=== PATIENT | female | born 1950 | race Caucasian/White ===

== ENCOUNTER 2022-05-02 11:56 | Day surgery (SDC) | payer MEDICARE, SELFPAY ==
[2022-05-02] MEDS: Tropicam./Phenyleph. (1/2.5%) 5 ML BTL OD ×3 (12:25→12:36)
[2022-05-02 12:26] VITALS: BP 147/86; PULSE 69; RESP 16; TEMP 36.4; O2SAT 100
--- NOTE | 2022-05-02 12:33 | ANES.PREOP_ITS ---
General Info Date of Service Date Performed: 05/02/22 Height: 5 ft 5.5 in Weight: 77.2 kg Body Mass Index (BMI): 27.8 Surgical Procedure: Operation Date: 05/02/22 15:40 Proposed Procedure Side Surgeon p Cataract Extraction with IOL Implant Right Devin Hernandez MD Meds Allergies and Home Medications Allergies Allergy/AdvReac Type Severity Reaction Status Date / Time green pepper Allergy Severe Anaphylaxis Verified 05/02/22 12:08 Sulfa (Sulfonamide Allergy Intermediate SKIN RASH Unverified 05/02/22 12:08 Antibiotics) mold Allergy Verified 05/02/22 12:08 niacin AdvReac Intermediate HEART Unverified 05/02/22 12:08 RACING; SKIN FLUSH Home Medication Medication Instructions Recorded Motrin 1 - 2 tab PO TID PRN 10/26/12 ascorbic acid (vitamin C) 1,000 mg 1 tab PO PRN 10/26/12 tablet lactase 9,000 unit chewable tablet 1 tab PO DAILY PRN 10/26/12 (Lactaid Fast Act) fexofenadine 180 mg tablet 180 mg PO DAILY #30 tab-caps 04/09/15 multivitamin (Daily Value tablet) 1 ea PO DAILY 07/21/15 Saccharomyces boulardii 250 mg 250 mg PO DAILY 04/29/22 capsule (Florastor) allopurinol 100 mg tablet 1 tab PO DAILY 04/29/22 atorvastatin 40 mg tablet 1 tab PO DAILY 04/29/22 biotin 1,000 mcg chewable tablet 1,000 mcg PO DAILY 04/29/22 coenzyme Q10 100 mg tablet 100 mg PO DAILY 04/29/22 colchicine 0.6 mg capsule 1.2 mg PO DIRECTED 04/29/22 cranberry 400 mg capsule 400 mg PO DAILY 04/29/22 fluticasone propionate 50 2 spray intranasal DAILY 04/29/22 mcg/actuation nasal spray,suspension lisinopril 5 mg tablet 1 tab PO DAILY 04/29/22 metformin 500 mg tablet 1 tab PO BID 04/29/22 Current Visit Medications: Current Medications Generic Name Dose Route Start Last Admin Trade Name Freq PRN Reason Stop Dose Admin Acetaminophen 1,000 mg 05/02/22 06:00 Acetaminophen 500 Mg Tab PO Q4H PRN PRN Miscellaneous Medication 0 ml 05/02/22 06:00 Prednisolone 1%, Moxifloxacin 0.5%, Nepafenac 0.1% 5ml Btl OD DIRECTED [facility], 1928–1983 Miscellaneous Medication 0 ml 05/02/22 06:00 05/02/22 12:31 Tropicam./Phenyleph. (1/2.5%) 5 Ml Btl OD 1 drp DIRECTED SACHIN Administration Tetracaine HCl 0 ml 05/02/22 06:00 Tetracaine 0.5% 4 Ml Btl OD DIRECTED [facility], 1928–1983 PFSH Active Problems Active Problems: Problem Status Onset Code Nuclear sclerotic cataract of right eye H25.11 Cortical cataract of right eye H26.9 Medical History Medical History Allergic rhinitis Cataract Diabetes mellitus Gout High cholesterol Osteoarthritis Right knee Pain, joint, shoulder, left Recurrent pneumonia Thyroid nodule Medical History Comments:: pt. reports headache today. Pt. reports post nasal d rip today Surgical History Surgical History History of colonoscopy Hysterectomy, Laproscopic has both ovaries Tobacco Smoking/Tobacco Use Status: Never Alcohol Alcohol Intake: never Substance Use Substance use: Never Substance use type: does not use Vital Signs and Lab Results Vital Signs Most Recent Vital Signs in EMR: Most Recent Vital Signs Temp Pulse Resp BP Pulse Ox 36.4 C L 69 16 147/86 H 100 05/02/22 12:26 05/02/22 12:26 05/02/22 12:26 05/02/22 12:26 05/02/22 12:26 Point of Care Results Point of Care Results: Finger Stick Blood Glucose 95 05/02/22 12:07 Lab Results Blood Type / Crossmatch: No Data to Display Complete Blood Count: No Data to Display Complete Metabolic Panel: No Data to Display Liver Function Panel: No Data to Display Coagulation Panel: No Data to Display Cardiac Panel: No Data to Display Arterial Blood Gas: No Data to Display Venous Blood Gas: No Data to Display Pancreas Panel: No Data to Display Thyroid Panel: No Data to Display Infectious Disease: 2 No Data to Display Blood Cultures: No Data to Display Toxicology Panel: No Data to Display Anesthesia Assessment and Plan Anesthesia History Personal History: PONV Family History: No Family History of Anesthesia Complications Exercise Tolerance Exercise Tolerance: Metabolic Equivalents>4 Pertinent Negatives Pertinent Negatives: No Symptoms of GERD, No Major Cardiovascular Symptoms or Complaints and No Major Pulmonary Symptoms or Complaints Cardiac & Pulmonary Exam Cardiac Exam: Normal S1/S2 Heart Sounds Pulmonary Exam: Clear Bilateral Breath Sounds Implantable Cardiac Device Does patient have a Pacemaker or an ICD?: No Airway Exam Known Difficult Airway: No Mallampati Class: 2 Mouth Opening: Normal (> 3cm) Thyromental Distance: Greater than 3 cm Neck Range of Motion: Full ROM Neck Circumference: Normal Teeth Condition: Normal Dentition ASA Classification ASA Score: ASA 2 Emergency Case?: No NPO Status NPO Status: NPO Clears >2 hours, Solids >8 hours Anesthesia Plan Resuscitation Status: Full Code Anesthesia Technique: MAC Anesthesia Airway Planned: Natural Airway Monitors Used: Standard Monitors
[2022-05-02 12:36] VITALS: BMI 27.8
[2022-05-02] MEDS: Povidone-Iodine Ophth 30 ML BTL (12:57)
[2022-05-02] MEDS: Lidocaine 2% Jelly 6 ML SYR (12:58)
[2022-05-02] MEDS: Tetracaine 0.5% 4 ML BTL OD (12:58)
[2022-05-02] MEDS: Duovisc Viscoelastic System EACH 1 EACH (13:02)
[2022-05-02] MEDS: Balanced Salt Soln.-PLUS 500 ML BAG (13:02)
[2022-05-02 13:31] VITALS: BP 150/105; PULSE 72; RESP 16; TEMP 36.3; O2SAT 98
--- NOTE | 2022-05-02 13:33 | PDOC.DSDIS_ITS ---
Date of service: 05/02/22 Time of Service: 13:34 Discharge Plan Disposition Patient Disposition: HOME Condition: Good Discharge Details Attending Provider: Devin Hernandez Primary Care Provider: Boston Parker Home Meds and New Rx's Prescriptions: No Action ascorbic acid (vitamin C) 1,000 MG tablet 1 tab PO PRN Lactaid Fast Act 9,000 UNIT tablet,chewable 1 tab PO DAILY PRN MOTRIN 400 MG tablet 1 - 2 tab PO TID PRN fexofenadine 180 MG tablet 180 mg PO DAILY Qty: 30 multivitamin [Daily Value] 1 EACH tablet 1 ea PO DAILY atorvastatin 40 mg tablet 1 tab PO DAILY Label Comments: TAKE 1 TABLET BY MOUTH EVERY DAY AT BEDTIME metformin 500 mg tablet 1 tab PO BID Label Comments: TAKE ONE TABLET BY MOUTH TWICE A DAY allopurinol 100 mg tablet 1 tab PO DAILY Label Comments: TAKE ONE TABLET BY MOUTH EVERY DAY FOR 90 DAYS cranberry 400 mg Capsule 400 mg PO DAILY Rx Instructions: administer with a meal lisinopril 5 mg tablet 1 tab PO DAILY Label Comments: TAKE ONE TABLET BY MOUTH EVERY DAY fluticasone propionate 50 mcg/actuation [place],Suspension 2 spray INTRANASAL DAILY Rx Instructions: administer into each nostril Saccharomyces boulardii [Florastor] 250 mg Capsule 250 mg PO DAILY coenzyme Q10 100 mg Tablet 100 mg PO DAILY colchicine 0.6 mg Capsule 1.2 mg PO DIRECTED biotin 1,000 mcg Tablet,Chewable 1,000 mcg PO DAILY Discharge Instructions Stand Alone Forms: Post-op Topical Cataract, Denise Oliver ([facility]) Discharge Orders Discharge Orders: Discharge Order (Routine); Ordered 05/02/22 Ordered By: Devin Hernandez DS: Diagnosis Discharge Diagnosis (1) Nuclear sclerotic cataract of right eye: Status: Resolved (2) Cortical cataract of right eye: Status: Resolved
--- NOTE | 2022-05-02 13:34 | ROE_ITS ---
Date of service: 05/02/22 Time of Service: 13:35 Operative Note Operative Note DATE OF PROCEDURE: 05/02/22 PRE-OP DIAGNOSIS: Nuclear/cortical cataract, right eye POST-OP DIAGNOSIS: same PROCEDURE: Cataract extraction using phacoemulsification with intraocular lens implant, right eye SURGEON: Devin Hernandez ANESTHESIA TYPE: Local By Surgeon and MAC Refer to Anesthesia Record ESTIMATED BLOOD LOSS: 0 PATHOLOGY: none sent COMPLICATIONS: None Patient was transported to: same day Patient's condition: stable Implants: [employer]/HERN[employer]N Tecnis [id number] Indications: Progressive visual loss due to cataract, right eye Procedure Description: CATARACT SURGERY OPERATIVE REPORT PREOPERATIVE DIAGNOSIS: 1. Nuclear/cortical cataract, right eye POSTOPERATIVE DIAGNOSIS: Same OPERATION: 1. Cataract extraction using phacoemulsification with posterior chamber intraocular lens implant, right eye. IOL: IOL [employer] Laborer/Model: [employer] / HERN[employer]N Tecnis [id number] IOL Power: + 22.0 diopters IOL Serial Number: [id number] Optic Diameter: 6.0mm Haptic/Overall Diameter: 13.0mm PHACO INFO: Twin InfraSearchurion Vision System with OZil and Active Fluidics Cumulative Dispersed Energy (CDE): 8.55 seconds SURGEON: Devin Hernandez MD, LAW ANESTHESIA: Monitored Anesthesia Care (MAC), with local sub-tenon's anesthetic infiltration COMPLICATIONS: None SPECIMENS: None INDICATIONS FOR PROCEDURE: The patient is a 72-year-old lady with history of diminished visual acuity in her right eye secondary to development of nuclear/cortical cataract. She is significantly symptomatic that she desires cataract surgery and attempt to improve and maximize her vision. The option of cataract surgery was offered to the patient and she wished to proceed. PROCEDURE: The correct surgical eye was identified and marked as the right eye and the pupil was dilated in the preoperative area using mydriatics and cycloplegics. The dilated pupil size was 7.0 mm. The patient elected to proceed without oral sedation. The patient was brought to the operating room where cardiopulmonary monitoring was instituted and surgical time-out was performed, confirming the correct operative eye and IOL power. Topical anesthesia was administered and ophthalmic povidone-iodine 5% was instilled into the conjunctival fornices. Lidocaine gel was applied to the cornea and the patience-ocular area was prepped with Betadine 10% solution and draped in the usual sterile fashion for intraocular surgery, including an aperture drape. A Tegaderm transparent film dressing was cut in half and used to cover the lashes and lid margins. Care was taken to sequester the lashes and lid margins under the Tegaderm dressing. A lid speculum was placed between the lids of the operative eye and the Twin LuxOR Revalia operating microscope was maneuvered into position. Significant blepharospasm was present. Monisha scissors were then used to make a conjunctival buttonhole approximately 6mm posterior to the limbus in the inferonasal quadrant. Blunt dissection was carried out to expose bare sclera, and a blunt-tipped sub-tenon?s anesthesia cannula was introduced and passed posteriorly along the globe where non- preserved plain lidocaine was injected into posterior sub-Tenon?s space. A sideport knife was used to make a paracentesis port inferotemporally. Intraocular phenylephrine/lidocaine was injected into the anterior chamber. The anterior chamber was filled with viscoelastic. A keratome knife was used to construct a 2-plane near-clear corneal tunnel extending 2.0mm into clear cornea superiortemporally. A flap was raised on the anterior capsule and capsulorhexis forceps were used to complete a continuous curvilinear capsulorhexis of 5.0 mm. Balanced salt solution was then used to perform cortical cleaving hydrodissection and nuclear hydrodelineation until the lens could be freely rotated within the capsular bag. The lens nucleus was then disassembled and removed within the capsular bag and iris plane using phacoemulsification. Residual cortical material was removed using the I/A handpiece. The posterior capsule was carefully polished to remove as much residual lens epithelial cells as safely possible. The capsular bag was then inflated and the anterior chamber deepened with viscoelastic. The lens implant described above was inserted into the capsular bag using the HERN[employer]N [place] Injector. A Kuglen hook was used to dial the IOL into position. Residual viscoelastic was then removed first from posterior to the IOL, then from the anterior chamber using the I/A handpiece. The lens implant was noted to center nicely within the capsular bag. The incisions were stromally hydrated, and the anterior chamber was reformed using BSS. Then 0.5cc of moxifloxacin 1.0mg/ml were injected into the capsular bag and anterior chamber. The in cisions were checked with a Weck spear and found to be secure. Several drops of ophthalmic povidone-iodine 5% were then applied to the eye followed by two drops of Imprimis combination prednisolone/moxifloxacin/nepafenac solution. The drapes were removed and a clear plastic protective eye shield was placed over the eye. The patient was then returned to [facility] Day Surgery in stable condition.
--- NOTE | 2022-05-02 13:35 | W.PM.DSUDISC ---
Date of service: 05/02/22 Time of Service: 13:35 Discharge Plan Disposition Patient Disposition: HOME Condition: Good Discharge Details Attending Provider: Devin Hernandez Primary Care Provider: Boston Parker Home Meds and New Rx's Prescriptions: No Action ascorbic acid (vitamin C) 1,000 MG tablet 1 tab PO PRN Lactaid Fast Act 9,000 UNIT tablet,chewable 1 tab PO DAILY PRN MOTRIN 400 MG tablet 1 - 2 tab PO TID PRN fexofenadine 180 MG tablet 180 mg PO DAILY Qty: 30 multivitamin [Daily Value] 1 EACH tablet 1 ea PO DAILY atorvastatin 40 mg tablet 1 tab PO DAILY Label Comments: TAKE 1 TABLET BY MOUTH EVERY DAY AT BEDTIME metformin 500 mg tablet 1 tab PO BID Label Comments: TAKE ONE TABLET BY MOUTH TWICE A DAY allopurinol 100 mg tablet 1 tab PO DAILY Label Comments: TAKE ONE TABLET BY MOUTH EVERY DAY FOR 90 DAYS cranberry 400 mg Capsule 400 mg PO DAILY Rx Instructions: administer with a meal lisinopril 5 mg tablet 1 tab PO DAILY Label Comments: TAKE ONE TABLET BY MOUTH EVERY DAY fluticasone propionate 50 mcg/actuation [place],Suspension 2 spray INTRANASAL DAILY Rx Instructions: administer into each nostril Saccharomyces boulardii [Florastor] 250 mg Capsule 250 mg PO DAILY coenzyme Q10 100 mg Tablet 100 mg PO DAILY colchicine 0.6 mg Capsule 1.2 mg PO DIRECTED biotin 1,000 mcg Tablet,Chewable 1,000 mcg PO DAILY Discharge Instructions Stand Alone Forms: Post-op Topical Cataract, Denise Oliver ([facility]) Discharge Orders Discharge Orders: Discharge Order (Routine); Ordered 05/02/22 Ordered By: Devin Hernandez DS: Diagnosis Discharge Diagnosis (1) Nuclear sclerotic cataract of right eye: Status: Resolved (2) Cortical cataract of right eye: Status: Resolved
[2022-05-02 13:55] VITALS: BP 173/84; PULSE 72; RESP 16; TEMP 36.5; O2SAT 99
--- NOTE | 2022-05-02 13:55 | W.ANESPOSTOP ---
Postoperative Evaluation Date, Time and Location Date Performed: 05/02/22 Time Performed: 13:55 Patient Location: Day Surgery Unit Vital Signs Most Recent Imported Vital Signs: Most Recent Vital Signs Temp Pulse Resp BP Pulse Ox 36.3 C L 72 16 150/105 H 98 05/02/22 13:31 05/02/22 13:31 05/02/22 13:31 05/02/22 13:31 05/02/22 13:31 Pain Score Most Recent Pain Score: Most Recent Pain Score Pain Level 0 05/02/22 12:26 Assessment Mental Status: Awake (Alert & Oriented to Patient Baseline) Airway and Respiratory Function: Patent airway with normal (patient baseline) respiratory exam Cardiovascular Function: Hemodynamically Stable Hydration Status: Adequately Hydrated Nausea & Vomiting: No Nausea or Vomiting Pain: Pt. Denies Any Pain Peripheral Nerve Block: Patient did not receive a nerve block
== END 2022-05-02 14:23 | disposition home or self-care (01) ==
PROVIDERS: PCP Family Medicine; Visit Provider Ophthalmology
PROC: (CPT 66984; principal; 2022-05-02 15:30)
DX: H25.11 Age-related nuclear cataract, right eye (principal); E11.9 Type 2 diabetes mellitus without complications
CPT/HCPCS: 66984; V2632

== ENCOUNTER 2022-05-16 06:44 | Day surgery (SDC) | payer MEDICARE, SELFPAY ==
--- NOTE | 2022-05-16 06:26 | W.ANESPRE ---
General Info Date of Service Date Performed: 05/16/22 Height: 5 ft 5.5 in Weight: 78 kg Body Mass Index (BMI): 28.1 Surgical Procedure: Operation Date: 05/16/22 08:40 Proposed Procedure Side Surgeon p Cataract Extraction with IOL Implant Left Devin Hernandez MD Meds Allergies and Home Medications Allergies Allergy/AdvReac Type Severity Reaction Status Date / Time green pepper Allergy Severe Anaphylaxis Verified 05/02/22 12:08 Sulfa (Sulfonamide Allergy Intermediate SKIN RASH Unverified 05/02/22 12:08 Antibiotics) mold Allergy Verified 05/02/22 12:08 niacin AdvReac Intermediate HEART Unverified 05/02/22 12:08 RACING; SKIN FLUSH Home Medication Medication Instructions Recorded Motrin 1 - 2 tab PO TID PRN 10/26/12 ascorbic acid (vitamin C) 1,000 mg 1 tab PO PRN 10/26/12 tablet lactase 9,000 unit chewable tablet 1 tab PO DAILY PRN 10/26/12 (Lactaid Fast Act) fexofenadine 180 mg tablet 180 mg PO DAILY #30 tab-caps 04/09/15 multivitamin (Daily Value tablet) 1 ea PO DAILY 07/21/15 Saccharomyces boulardii 250 mg 250 mg PO DAILY 04/29/22 capsule (Florastor) allopurinol 100 mg tablet 1 tab PO DAILY 04/29/22 atorvastatin 40 mg tablet 1 tab PO DAILY 04/29/22 biotin 1,000 mcg chewable tablet 1,000 mcg PO DAILY 04/29/22 coenzyme Q10 100 mg tablet 100 mg PO DAILY 04/29/22 colchicine 0.6 mg capsule 1.2 mg PO DIRECTED 04/29/22 cranberry 400 mg capsule 400 mg PO DAILY 04/29/22 fluticasone propionate 50 2 spray intranasal DAILY 04/29/22 mcg/actuation nasal spray,suspension lisinopril 5 mg tablet 1 tab PO DAILY 04/29/22 metformin 500 mg tablet 1 tab PO BID 04/29/22 Current Visit Medications: Current Medications Generic Name Dose Route Start Last Admin Trade Name Freq PRN Reason Stop Dose Admin Acetaminophen 1,000 mg 05/16/22 06:00 Acetaminophen 500 Mg Tab PO Q4H PRN PRN Miscellaneous Medication 0 ml 05/16/22 06:00 Prednisolone 1%, Moxifloxacin 0.5%, Nepafenac 0.1% 5ml Btl OS DIRECTED SACHIN Miscellaneous Medication 0 ml 05/16/22 06:00 Tropicam./Phenyleph. (1/2.5%) 5 Ml Btl OS DIRECTED SACHIN Tetracaine HCl 0 ml 05/16/22 06:00 Tetracaine 0.5% 4 Ml Btl OS DIRECTED [facility] PFSH Active Problems Active Problems: Problem Status Onset Code Nuclear sclerotic cataract of right eye H25.11 Cortical cataract of right eye H26.9 Nuclear sclerotic cataract of left eye H25.12 Cortical cataract of left eye H26.9 Medical History Medical History Allergic rhinitis Cataract Diabetes mellitus Gout High cholesterol Osteoarthritis Right knee Pain, joint, shoulder, left Recurrent pneumonia Thyroid nodule Medical History Comments:: Chronic cough Surgical History Surgical History (Updated 05/13/22 @ 11:08 by Cori Toribio RN) History of cataract surgery History of colonoscopy Hysterectomy, Laproscopic has both ovaries Tobacco Smoking/Tobacco Use Status: Never Alcohol Alcohol Intake: never Substance Use Substance use: Never Substance use type: does not use Vital Signs and Lab Results Lab Results Blood Type / Crossmatch: No Data to Display Complete Blood Count: No Data to Display Complete Metabolic Panel: No Data to Display Liver Function Panel: No Data to Display Coagulation Panel: No Data to Display Cardiac Panel: No Data to Display Arterial Blood Gas: No Data to Display Venous Blood Gas: No Data to Display Pancreas Panel: No Data to Display Thyroid Panel: No Data to Display Infectious Disease: No Data to Display Blood Cultures: No Data to Display Toxicology Panel: No Data to Display Anesthesia Assessment and Plan Anesthesia History Personal History: PONV Family History: No Family History of Anesthesia Complications Exercise Tolerance Exercise Tolerance: Metabolic Equivalents>4 Cardiac & Pulmonary Exam Cardiac Exam: Normal S1/S2 Heart Sounds Pulmonary Exam: Clear Bilateral Breath Sounds Implantable Cardiac Device Does patient have a Pacemaker or an ICD?: No Airway Exam Known Difficult Airway: No Mallampati Class: 2 Mouth Opening: Normal (> 3cm) Thyromental Distance: Greater than 3 cm Neck Range of Motion: Full ROM Neck Circumference: Normal Teeth Condition: Normal Dentition ASA Classification ASA Score: ASA 2 Emergency Case?: No NPO Status NPO Status: NPO Clears >2 hours, Solids >8 hours Anesthesia Plan Resuscitation Status: Full Code Anesthesia Technique: MAC Anesthesia Airway Planned: Natural Airway Monitors Used: Standard Monitors Preoperative Comments:: 72 yo female for repeat cataract. No mKO last time, but note in intraop of needing reassurance. Sig PMHx: DM, gout, thyroid nodule, HTN. Would like an MKO this time.
[2022-05-16 07:04] VITALS: BMI 28.1
[2022-05-16] MEDS: Tropicam./Phenyleph. (1/2.5%) 5 ML BTL OS ×3 (07:12→07:26)
[2022-05-16 07:13] VITALS: BP 150/76; PULSE 76; RESP 15; TEMP 36.7; O2SAT 98
[2022-05-16] MEDS: Lidocaine 2% Jelly 6 ML SYR (08:23)
[2022-05-16] MEDS: Povidone-Iodine Ophth 30 ML BTL (08:23)
[2022-05-16] MEDS: Lidocaine 1% Pres-Free 5 ML VIAL (08:27)
[2022-05-16] MEDS: Tetracaine 0.5% 4 ML BTL OS (08:29)
[2022-05-16] MEDS: Balanced Salt Soln.-PLUS 500 ML BAG (08:30)
[2022-05-16] MEDS: Duovisc Viscoelastic System EACH 1 EACH (08:30)
[2022-05-16 08:50] VITALS: BP 115/78; PULSE 68; RESP 16; TEMP 36.1; O2SAT 98
--- NOTE | 2022-05-16 08:54 | W.PM.DSUDISC ---
Date of service: 05/16/22 Time of Service: 08:54 Discharge Plan Disposition Patient Disposition: HOME Condition: Good Discharge Details Attending Provider: Devin Hernandez Primary Care Provider: Boston Parker Home Meds and New Rx's Prescriptions: No Action ascorbic acid (vitamin C) 1,000 MG tablet 1 tab PO PRN Lactaid Fast Act 9,000 UNIT tablet,chewable 1 tab PO DAILY PRN MOTRIN 400 MG tablet 1 - 2 tab PO TID PRN fexofenadine 180 MG tablet 180 mg PO DAILY Qty: 30 multivitamin [Daily Value] 1 EACH tablet 1 ea PO DAILY atorvastatin 40 mg tablet 1 tab PO DAILY Label Comments: TAKE 1 TABLET BY MOUTH EVERY DAY AT BEDTIME metformin 500 mg tablet 1 tab PO BID Label Comments: TAKE ONE TABLET BY MOUTH TWICE A DAY allopurinol 100 mg tablet 1 tab PO DAILY Label Comments: TAKE ONE TABLET BY MOUTH EVERY DAY FOR 90 DAYS cranberry 400 mg Capsule 400 mg PO DAILY Rx Instructions: administer with a meal lisinopril 5 mg tablet 1 tab PO DAILY Label Comments: TAKE ONE TABLET BY MOUTH EVERY DAY fluticasone propionate 50 mcg/actuation [place],Suspension 2 spray INTRANASAL DAILY Rx Instructions: administer into each nostril Saccharomyces boulardii [Florastor] 250 mg Capsule 250 mg PO DAILY coenzyme Q10 100 mg Tablet 100 mg PO DAILY colchicine 0.6 mg Capsule 1.2 mg PO DIRECTED biotin 1,000 mcg Tablet,Chewable 1,000 mcg PO DAILY Discharge Instructions Stand Alone Forms: Post-op Topical Cataract, Denise Oliver ([facility]) DS: Diagnosis Discharge Diagnosis (1) Nuclear sclerotic cataract of left eye: Status: Resolved (2) Cortical cataract of left eye: Status: Resolved
--- NOTE | 2022-05-16 08:55 | W.PM.OP ---
Date of service: 05/16/22 Time of Service: 08:55 Operative Note Operative Note DATE OF PROCEDURE: 05/16/22 PRE-OP DIAGNOSIS: Nuclear/cortical cataract, left eye POST-OP DIAGNOSIS: same PROCEDURE: Cataract extraction using phacoemulsification with intraocular lens implant, left eye SURGEON: Devin Hernandez ANESTHESIA TYPE: Local By Surgeon and MAC Refer to Anesthesia Record PATHOLOGY: none sent COMPLICATIONS: None Patient was transported to: same day Patient's condition: stable Implants: Jacinto and Jacinto / [employer] Tecnis [id number] Indications: Progressive decreased vision due to cataract, left eye Procedure Description: CATARACT SURGERY OPERATIVE REPORT PREOPERATIVE DIAGNOSIS: 1. Nuclear/cortical cataract, left eye POSTOPERATIVE DIAGNOSIS: Same OPERATION: 1. Cataract extraction using phacoemulsification with posterior chamber intraocular lens implant, left eye. IOL: IOL Subsurface Augmentee Elint Operator/Model: Jacinto [employer] Jacinto / HERNÁN Tecnis [id number] IOL Power: + 22.5 diopters IOL Serial Number: [id number] Optic Diameter: 6.0 mm Haptic/Overall Diameter: 13.0 mm PHACO INFO: TwinFeedMagneton Vision System with OZil and Active Fluidics Cumulative Dispersed Energy (CDE): 4.24 seconds SURGEON: Devin Hernandez MD, LAW ANESTHESIA: Monitored A [facility] (MAC), with local sub-tenon's anesthetic infiltration COMPLICATIONS: None SPECIMENS: None INDICATIONS FOR PROCEDURE: The patient is a 72-year-old lady with history of diminished visual acuity in both eyes secondary to the development of bilateral nuclear/cortical cataract. She has already undergone cataract surgery in the right eye and is doing well postoperatively. She now presents for cataract surgery in the left eye. PROCEDURE: The correct surgical eye was identified and marked as the left eye and the pupil was dilated in the preoperative area using mydriatics and cycloplegics. The dilated pupil size was 7.0 mm. Oral sedation was administered in the form of an Imprimis MKO Melt (midazolam 3mg/ketamine 25mg/ondansetron 2mg). . The patient was brought to the operating room where cardiopulmonary monitoring was instituted and surgical time-out was performed, confirming the correct operative eye and IOL power. Topical anesthesia was administered and ophthalmic povidone-iodine 5% was instilled into the conjunctival fornices. Lidocaine gel was applied to the cornea and the patience-ocular area was prepped with Betadine 10% solution and draped in the usual sterile fashion for intraocular surgery, including an aperture drape. A Tegaderm transparent film dressing was cut in half and used to cover the lashes and lid margins. Care was taken to sequester the lashes and lid margins under the Tegaderm dressing. A lid speculum was placed between the lids of the operative eye and the Twin LuxOR Revalia operating microscope was maneuvered into position. Monisha scissors were then used to make a conjunctival buttonhole approximately 6mm posterior to the limbus in the inferonasal quadrant. Blunt dissection was carried out to expose bare sclera, and a blunt-tipped sub-tenon?s anesthesia cannula was introduced and passed posteriorly along the globe where non-preserved plain lidocaine was injected into posterior sub-Tenon?s space. A sideport knife was used to make a paracentesis port superiorly/superiortemporally. Intraocular phenylephrine/lidocaine was injected int the anterior chamber.. The anterior chamber was filled with viscoelastic. A keratome knife was used to construct a 2-plane near-clear corneal tunnel extending 2.0mm into clear cornea temporally. A flap was raised on the anterior capsule and capsulorhexis forceps were used to complete a continuous curvilinear capsulorhexis of 5.5 mm. Balanced salt solution was then used to perform cortical cleaving hydrodissection and nuclear hydrodelineation until the lens could be freely rotated within the capsular bag. The lens nucleus was then disassembled and removed within the capsular bag and iris plane using phacoemulsification. Residual cortical material was removed using the 45-degree angled silicone I/A tip with 0.3mm port. The posterior capsule was carefully polished to remove as much residual lens epithelial cells as safely possible. The capsular bag was then inflated and the anterior chamber deepened with viscoelastic. The lens implant described above was inserted into the capsular bag using the HERNÁN Grindstone Injector. A Kuglen hook was used to dial the IOL into position. Residual viscoelastic was then removed first from posterior to the IOL, then from the anterior chamber using the I/A handpiece. The lens implant was noted to center nicely within the capsular bag. The incisions were stromally hydrated, and the anterior chamber was reformed using BSS. Then 0.5cc of moxifloxacin 1.0mg/ml were injected into the capsular bag and anterior chamber. The incisions were checked with a Weck spear and found to be secure. Several drops of ophthalmic povidone-iodine 5% were then applied to the eye followed by two drops of Imprimis combination prednisolone/moxifloxacin/nepafenac solution. The drapes were removed and a clear plastic protective eye shield was placed over the eye. The patient was then returned to Same Day Surgery in stable condition.
--- NOTE | 2022-05-16 09:02 | W.ANESPOSTOP ---
Postoperative Evaluation Date, Time and Location Date Performed: 05/16/22 Time Performed: 09:03 Patient Location: Day Surgery Unit Vital Signs Most Recent Imported Vital Signs: Most Recent Vital Signs Temp Pulse Resp BP Pulse Ox 36.1 C L 68 16 115/78 98 05/16/22 08:50 05/16/22 08:50 05/16/22 08:50 05/16/22 08:50 05/16/22 08:50 Pain Score Most Recent Pain Score: Most Recent Pain Score Pain Level 0 05/16/22 08:50 Assessment Mental Status: Awake (Alert & Oriented to Patient Baseline) Airway and Respiratory Function: Patent airway with normal (patient baseline) respiratory exam Cardiovascular Function: Hemodynamically Stable Hydration Status: Adequately Hydrated Nausea & Vomiting: No Nausea or Vomiting Pain: Pt. Denies Any Pain Peripheral Nerve Block: Patient did not receive a nerve block
[2022-05-16 09:11] VITALS: BP 143/77; PULSE 70; RESP 16; TEMP 36.3; O2SAT 98
== END 2022-05-16 09:20 | disposition home or self-care (01) ==
LOC: SUR 06:45
PROVIDERS: PCP Family Medicine; Visit Provider Ophthalmology
PROC: (CPT 66984; principal; 2022-05-16 08:30)
DX: H25.12 Age-related nuclear cataract, left eye (principal)
CPT/HCPCS: 66984; V2632